=== PATIENT | female | born 1975 | race Caucasian/White ===

== ENCOUNTER 2016-08-26 15:48 | Outpatient (CLI) | payer OTHER ==
--- NOTE | 2016-08-26 17:31 | DIAGNOSTIC IMAGING REPORT ---
PROCEDURE: MG BILATERAL SCREENING W/CAD INDICATION: Baseline screening, remote family history of aunt with breast cancer TECHNIQUE: Standard CC and MLO views bilaterally. Computer aided detection was used. COMPARISON: None. FINDINGS: Minimally dense fibrofatty tissue is present bilaterally. Nodular glandular density in the superior anterior left breast. Benign appearing right intramammary lymph node. No suspicious areas of architectural distortion or clustered microcalcification. IMPRESSION: 1. Nodular glandular density anterior superior left breast for which further evaluation with spot compression and ultrasound is recommended. This likely represents cystic change or nodular glandular focus. 2. The patient will be contacted. RESULT CODE: 0- Incomplete; needs additional evaluation. A. A negative report should not delay biopsy if a dominant or clinically suspicious mass is present. 10-15% of cancers are not identified by x-ray. B. A negative report may reinforce clinical impression. C. Adenosis and dense breasts may obscure an underlying neoplasm. D. False positive reports average 6-10%. E.. A yearly screening mammogram is recommended. A reminder letter will be scheduled.
== END 2016-08-26 23:00 | disposition home or self-care (01) ==
LOC: MAM SRH 15:48
DX: Z12.31 Encounter for screening mammogram for malignant neoplasm of breast (principal); Z80.3 Family history of malignant neoplasm of breast

== ENCOUNTER 2016-09-07 11:18 | Outpatient (CLI) | payer OTHER ==
--- NOTE | 2016-09-07 14:03 | DIAGNOSTIC IMAGING REPORT ---
PROCEDURE: MG UNILATERAL DIAG-LT W/CAD INDICATION: Follow-up left breast asymmetry. TECHNIQUE: True lateral digital view of the left breast. In addition, spot compression CC and MLO views, and rolled medial and lateral CC views were obtained of the upper central left breast (region of clinical concern). Finally, high-resolution left breast ultrasound was performed (18 mHz). COMPARISON: Comparison is made to baseline mammogram study on 08/26/2016. FINDINGS: MAMMOGRAM: Computer-aided detection applied. Confirmation of a 1.8 x 1.2 cm ovoid area of asymmetric parenchyma in the upper central left breast (1200 position, anterior third) BREAST ULTRASOUND: There is a there is a 1.8 x 1.0 cm ovoid heterogeneous area of parenchyma in the upper central left breast which corresponds to the mammographic density. IMPRESSION: 1. Confirmation of a 1.8 x 1.2 cm ovoid parenchymal density in the upper central left breast. The overall appearance is consistent with benign normal glandular tissue or a benign hamartoma (adenolipoma). While there is no evidence of underlying abnormality, this represents the patient's baseline study, and as such, early follow-up left mammogram and left breast ultrasound in 6 months is recommended to confirm stability. 2. Findings discussed with the patient. RESULT CODE: 3- Probably benign findings - initial short-interval follow-up suggested. A. A negative report should not delay biopsy if a dominant or clinically suspicious mass is present. 10-15% of cancers are not identified by x-ray. B. A negative report may reinforce clinical impression. C. Adenosis and dense breasts may obscure an underlying neoplasm. D. False positive reports average 6-10%. E.. A yearly screening mammogram is recommended. A reminder letter will be scheduled.
== END 2016-09-07 23:00 ==
LOC: MAM SRH 11:18
DX: N64.89 Other specified disorders of breast (principal)